=== PATIENT | female | born 1965 | race Caucasian/White ===

== ENCOUNTER 2016-09-07 20:25 | Emergency (ER) | payer SELFPAY ==
[~2016-09-07] VITALS: Ht 157.5 cm; Wt 81.3 kg
[~2016-09-07 20:25] MED LIST: AUGMENTIN875 MG PO; CLINDAMYCIN HC300 MG PO; FOLIC ACID1 MG PO; MOTRIN800 MG PO; MULTIVITAMIN1 EAC2 PO; OTREXUP 1515 MG/0.4 SC; PERCOCET 5/31 TABLET PO; PREDNISONE5 MG PO; RITUXAN10 MG/ML IV
[2016-09-07] MEDS ORDERED: CLEOCIN300 MG PO (20:58)
[2016-09-07] MEDS ORDERED: NORCO 5/3251 TABLET PO (20:58)
[2016-09-07 21:16] VITALS: BP 137/88
== END 2016-09-07 21:17 | disposition home or self-care (01) ==
LOC: EME 20:25
DX: K04.7 Periapical abscess without sinus (principal); K03.81 Cracked tooth; M06.9 Rheumatoid arthritis, unspecified; Z79.52 Long term (current) use of systemic steroids; Z87.891 Personal history of nicotine dependence
CPT/HCPCS: 99281; 99283

== ENCOUNTER 2016-09-09 16:55 | Inpatient (IN) | payer SELFPAY ==
[~2016-09-09] VITALS: Ht 157.5 cm; Wt 78.2 kg
[~2016-09-09 16:55] MED LIST changes: +CLEOCIN300 MG PO; +NORCO 5/3251 TABLET PO
[2016-09-09 18:18] LABS: EOSINOPHIL (%) 0.5 % (0-5); HEMATOCRIT 45.1 % (36.0-46.0); IMMATURE GRANULOCYTE (%) 0.3 % (0.0-0.7); IMMATURE GRANULOCYTE COUNT 0.2 K/uL; LYMPHOCYTE COUNT 1.7 K/uL (1.0-2.8); MCH 31.3 PG (29.0-34.0); MCHC 35.5 G/DL (30.0-36.0); MCV 88.1 FL (83-99); MONOCYTE (%) 12.6 % (3-12); MONOCYTE COUNT 0.8 K/uL (0-0.8); NEUTROPHIL (%) 56.9 % (45-76); NEUTROPHIL COUNT 3.4 K/uL (1.8-6.4); PLATELET COUNT 259 K/uL (156-360); RBC DIS.WIDTH-CV 12.6 % (11.8-14.6); RBC DIS.WIDTH-SD 40.2 % (39-53); RED BLOOD COUNT 5.12 M/uL (3.80-5.20); WHITE BLOOD COUNT 5.9 K/uL (4.1-10.2)
[2016-09-09 18:29] LABS: CHLORIDE 102 mEq/L (99-109); POTASSIUM 3.8 mEq/L (3.7-5.4); SODIUM 139 mEq/L (136-147)
[2016-09-09 18:30] LABS: GLUCOSE 114 mg/dL (70-99)
[2016-09-09 18:32] LABS: ANION GAP 10 MEQ/L (2-14)
[2016-09-09 18:34] LABS: GFR ESTIMATE (CALCULATED) > 59 mL/min/
[2016-09-09 18:35] LABS: UREA NITROGEN (BUN) 7 mg/dL (9-23)
[2016-09-09] MEDS ORDERED: THEOPHYLLINE PO (19:11)
[2016-09-09] MEDS ORDERED: ZYRTEC10 M2 PO (19:12)
[2016-09-09] MEDS ORDERED: XOPENEX IH (19:14)
[2016-09-09] MEDS ORDERED: PROVENTIL HFA6.7 GM IH (19:14)
[2016-09-09 22:25] VITALS: BP 143/72
[2016-09-10 04:39] VITALS: BP 119/77
[2016-09-10 07:35] VITALS: BP 119/82
[2016-09-10 12:40] VITALS: BP 102/59; BP 122/80
[2016-09-10 15:35] VITALS: BP 115/71
[2016-09-10 19:25] VITALS: BP 136/86
[2016-09-10 23:18] VITALS: BP 126/70
[2016-09-11 03:53] VITALS: BP 120/67
[2016-09-11 16:25] VITALS: BP 146/95
[2016-09-12 00:04] VITALS: BP 134/59
[2016-09-12 07:42] LABS: EOSINOPHIL (%) 1.5 % (0-5); EOSINOPHIL COUNT 0.1 K/uL (0-0.3); HEMATOCRIT 44.2 % (36.0-46.0); IMMATURE GRANULOCYTE (%) 0.3 % (0.0-0.7); LYMPHOCYTE COUNT 3.1 K/uL (1.0-2.8); MCH 29.9 PG (29.0-34.0); MCHC 33.3 G/DL (30.0-36.0); MCV 89.8 FL (83-99); MONOCYTE COUNT 0.7 K/uL (0-0.8); NEUTROPHIL (%) 49.7 % (45-76); NEUTROPHIL COUNT 3.9 K/uL (1.8-6.4); PLATELET COUNT 279 K/uL (156-360); RBC DIS.WIDTH-CV 12.8 % (11.8-14.6); RBC DIS.WIDTH-SD 41.8 % (39-53); RED BLOOD COUNT 4.92 M/uL (3.80-5.20)
[2016-09-12 07:52] LABS: WHITE BLOOD COUNT 7.9 K/uL (4.1-10.2)
[2016-09-12 07:57] VITALS: BP 132/90
[2016-09-12 07:58] LABS: ALKALINE PHOSPHATASE 127 IU/L (3-129); ANION GAP 6 MEQ/L (2-14); CHLORIDE 106 MEQ/L (99-109); GFR ESTIMATE (CALCULATED) > 59 mL/min/; GLUCOSE 90 mg/dL (70-99); SAMPLE HEMOLYSIS CHECK 0; SAMPLE ICTERIC CHECK 0; SAMPLE LIPEMIA CHECK 0; SODIUM 144 MEQ/L (136-147); TOTAL BILIRUBIN 0.3 MG/DL (0.0-1.0); UREA NITROGEN (BUN) 10 mg/dL (9-23)
[2016-09-12 07:59] LABS: POTASSIUM 4.8 MEQ/L (3.7-5.4)
[2016-09-12 15:00] VITALS: BP 128/75
[2016-09-12 19:15] VITALS: BP 138/52
[2016-09-12 23:15] VITALS: BP 125/81
[2016-09-13 04:20] VITALS: BP 165/74
[2016-09-13 07:00] VITALS: BP 177/91
[2016-09-13 08:40] VITALS: BP 120/80
[2016-09-13] MEDS ORDERED: AUGMENTIN875 MG PO (09:55)
== END 2016-09-13 12:51 | disposition home or self-care (01) | DRG 603 ==
LOC: EME 16:55 → EDOF 20:40 → 2EAST 20:40
PROVIDERS: Hospitalist; Physician Assistant
DX: L03.211 Cellulitis of face (principal); M06.9 Rheumatoid arthritis, unspecified; K04.7 Periapical abscess without sinus; K05.10 Chronic gingivitis, plaque induced; I10 Essential (primary) hypertension; J32.0 Chronic maxillary sinusitis; H40.9 Unspecified glaucoma; J45.909 Unspecified asthma, uncomplicated; Z86.718 Personal history of other venous thrombosis and embolism; F17.210 Nicotine dependence, cigarettes, uncomplicated
CPT/HCPCS: 70487; 80048; 80053; 85025; 99202; 99281; 99285; C9113; J0295; J1650; J1885; J2543; J2930; J3010; J7050

== ENCOUNTER 2017-03-12 06:45 | Emergency (ER) | payer BC ==
[~2017-03-12] VITALS: Ht 157.5 cm; Wt 85.2 kg
[~2017-03-12 06:45] MED LIST changes: +PROVENTIL HFA6.7 GM IH; +THEOPHYLLINE PO; +XOPENEX IH; +ZYRTEC10 M2 PO
[2017-03-12 07:59] LABS: HEMATOCRIT 40.7 % (36.0-46.0); MCH 31.3 PG (29.0-34.0); MCHC 34.6 G/DL (30.0-36.0); MCV 90.2 FL (83-99); MEAN PLAT.VOLUME 9.6 uM^3 (9.5-12.4); PLATELET COUNT 291 K/uL (156-360); RBC DIS.WIDTH-CV 13.1 % (11.8-14.6); RBC DIS.WIDTH-SD 43.7 % (39-53); RED BLOOD COUNT 4.51 M/uL (3.80-5.20); WHITE BLOOD COUNT 7.4 K/uL (4.1-10.2)
[2017-03-12 08:22] LABS: TROP-I INTERPRETATION NEGATIVE; TROPONIN-I 0.02 ng/mL (0.0-0.30)
[2017-03-12 08:42] LABS: CHLORIDE 106 mEq/L (99-109); SODIUM 138 mEq/L (136-147)
[2017-03-12 08:42] LABS: ADD MIUA? NO; BILIRUBIN NEGATIVE; BLOOD NEGATIVE; COLOR STRAW ((YELLOW)); GLUCOSE (STRIP) NEGATIVE; KETONES NEGATIVE; LEUKOCYTES NEGATIVE; NITRITE NEGATIVE; PROTEIN (STRIP) NEGATIVE; SPECIFIC GRAVITY 1.008 (1.000-1.030); UCUL ADDED? NO; UROBILINOGEN 0.2 MG/DL (0.2-1.0)
[2017-03-12 08:44] LABS: GLUCOSE 92 mg/dL (70-99)
[2017-03-12 08:45] LABS: ANION GAP 9 MEQ/L (2-14)
[2017-03-12 08:46] LABS: TOTAL BILIRUBIN 0.3 mg/dL (0.0-1.0)
[2017-03-12 08:47] LABS: ALKALINE PHOSPHATASE 96 IU/L (3-129)
[2017-03-12 08:48] LABS: GFR ESTIMATE (CALCULATED) > 59 mL/min/
[2017-03-12 08:49] LABS: UREA NITROGEN (BUN) 6 mg/dL (9-23)
[2017-03-12 11:29] LABS: LA GHOST TEST 2 2.7
[2017-03-12 12:34] LABS: D-DIMER ELISA < 150.00 ng/mLDDU (<230)
[2017-03-12 12:45] LABS: TROP-I INTERPRETATION NEGATIVE; TROPONIN-I 0.01 ng/mL (0.0-0.30)
[2017-03-12] MEDS ORDERED: TORADOL10 MG PO (13:18)
[2017-03-12 13:52] VITALS: BP 153/98
== END 2017-03-12 13:45 | disposition home or self-care (01) ==
LOC: EME 06:45
PROVIDERS: Nurse Practitioner Family
DX: J06.9 Acute upper respiratory infection, unspecified (principal); R50.9 Fever, unspecified; J02.9 Acute pharyngitis, unspecified; Z87.442 Personal history of urinary calculi; Z87.891 Personal history of nicotine dependence
CPT/HCPCS: 71020; 80053; 81003; 83605; 84484; 85027; 85379; 87040; 87651 90; 93005; 94640; 99281; 99285; J1885; J3010; J7030